=== PATIENT | female | born 1985 | race African-American/Black ===

== ENCOUNTER 2021-02-11 08:09 | Emergency (ER) | payer MEDICAID ==
[~2021-02-11] VITALS: Ht 165.1 cm; Wt 70.0 kg
[~2021-02-11 08:09] MED LIST: METFORMIN
[2021-02-11] MEDS ORDERED: FAMOTIDINE 20MG/2ML VIAL IV STA (08:19)
[2021-02-11] MEDS ORDERED: MORPHINE SULFATE 4 MG/ML CPJ (NOT FOR IM USE) IV STA (08:19)
[2021-02-11] MEDS ORDERED: METOCLOPRAMIDE HCL 10MG/2ML VIAL IV ONE (08:30)
[2021-02-11] MEDS ORDERED: SODIUM CHLORIDE 0.9% 1,000 ML IV ONE (08:30)
[2021-02-11] MEDS ORDERED: MORPHINE SULFATE 2 MG/ML CPJ (NOT FOR IM USE) IV SCH ×2 (08:45→12:00)
[2021-02-11 09:01] LABS: BASOPHILS % 0.5 % (0.0-2.0); EOSINOPHILS % 0.2 % (0.0-5.0); HEMATOCRIT. 42.9 % (36.0-48.0); LYMPHOCYTES % 35.2 % (20.0-50.0); MEAN CORPUSCULAR HEMOGLOBIN 26.8 pg (28.0-32.0); MEAN CORPUSCULAR VOLUME 82.4 fL (81.0-99.0); MONOCYTES % 7.2 % (2.0-8.0); NEUTROPHILS % 56.9 % (40.0-76.0); PLATELET 278 x1000/uL (130-400); RED BLOOD CELL COUNT 5.21 mill/uL (4.2-5.4); RED CELL DISTRIBUTION WIDTH 15.8 % (11.6-14.6)
[2021-02-11 09:04] LABS: CHLORIDE 99 mEq/L (98-107)
[2021-02-11 09:11] LABS: HCG SCREEN NEGATIVE
[2021-02-11 10:44] LABS: CLARITY URINE CLEAR (CLEAR); COLOR URINE YELLOW (YELLOW); KETONES URINE TRACE (NEGATIVE); LEUKOCYTE ESTERASE URINE NEGATIVE (NEGATIVE); NITRITE URINE NEGATIVE (NEGATIVE); OCCULT BLOOD URINE NEGATIVE (NEGATIVE); PROTEIN URINE NEGATIVE (NEGATIVE); SPECIFIC GRAVITY URINE 1.009 (1.005-1.030)
[2021-02-11] MEDS ORDERED: LEVOFLOXACIN 750MG PREMIX 150 ML IV ONE (11:45)
[2021-02-11] MEDS ORDERED: MORPHINE SULFATE 4 MG/ML CPJ (NOT FOR IM USE) IV ONE (11:45)
[2021-02-11] MEDS ORDERED: METRONIDAZOLE 500 MG PREMIX 100 ML IV ONE (11:45)
[2021-02-11 16:10] VITALS: BP 122/84
== END 2021-02-11 17:05 | disposition left against medical advice (07) ==
LOC: ER 08:09
DX: R10.13 Epigastric pain (principal); J45.909 Unspecified asthma, uncomplicated
CPT/HCPCS: 36415; 74176; 76830; 76856; 80053; 81003; 83690; 84703; 85025; 85610; 96361; 96365; 96366; 96368; 96375; 96376; 99285; J1956; J2270; J2765; J3490; J7030

== ENCOUNTER 2022-06-28 12:17 | Emergency (ER) | payer MEDICAID | END 2022-06-28 13:57 | disposition left against medical advice (07) | LOC: ER 13:04 | DX: Z53.21 Procedure and treatment not carried out due to patient leaving prior to being seen by health care provider (principal) | CPT/HCPCS: 99281 ==

== ENCOUNTER 2022-07-01 09:51 | Emergency (ER) | payer MEDICAID ==
[~2022-07-01] VITALS: Ht 170.2 cm; Wt 77.0 kg
[2022-07-01 09:58] VITALS: BP 146/95
[2022-07-01] MEDS ORDERED: CEPH250C2 MT (14:28)
[2022-07-01] MEDS ORDERED: SULF1TAB48 MT (14:28)
[2022-07-01] MEDS ORDERED: IBUP-2029 MT (14:29)
[2022-07-01] MEDS ORDERED: IBUPROFEN 600MG TABLET PO ONE (14:30)
[2022-07-01] MEDS ORDERED: CEPH500T MT (14:33)
== END 2022-07-01 14:45 | disposition home or self-care (01) ==
LOC: ER 09:51
DX: L02.31 Cutaneous abscess of buttock (principal); J45.909 Unspecified asthma, uncomplicated
CPT/HCPCS: 99283